=== PATIENT | female | born 1960 | race Caucasian/White ===

== ENCOUNTER 2019-09-06 16:11 | Emergency (ER) | payer OTHER ==
[2019-09-06 16:49] VITALS: BP 124/73
--- NOTE | 2019-09-06 17:08 | UC ---
Lower Extremity/Ankle HPI - HPI Summary HPI Summary: Pt presents with c/o right foot pain X 1 day. Pt denies recent trauma or overuse. Pt states pain is worse with weight bearing. Pt denies hx of gout or septic joint. - History of Current Complaint Chief Complaint: UCLowerExtremity Stated Complaint: RT FOOT COMPLAINT Time Seen by Provider: 09/06/19 16:48 Hx Obtained From: Patient ?: No Onset/Duration: Sudden Onset, Still Present Severity Initially: Mild Severity Currently: Moderate - with weight bearing Pain Intensity: 2 Aggravating Factor(s): Standing, Ambulation Alleviating Factor(s): Rest, Elevation Able to Bear Weight: Yes - painful - Risk Factors Gout Risk Factors: Age Over 40 DVT Risk Factors: Negative Septic Arthritis Risk Factor: Negative - Allergies/Home Medications Allergies/Adverse Reactions: Allergies Allergy/AdvReac Type Severity Reaction Status Date / Time amoxicillin [From Augmentin] Allergy Unknown Verified 09/06/19 16:49 Reaction Details clavulanic acid Allergy Unknown Verified 09/06/19 16:49 [From Augmentin] Reaction Details Home Medications: Home Medications NK [No Home Medications Reported] 09/06/19 [History Confirmed 09/06/19] PMH/Surg Hx/FS Hx/Imm Hx Previously Healthy: Yes - Surgical History Surgical History: Yes Surgery Procedure, Year, and Place: T&A - Family History Known Family History: Positive: Cardiac Disease - Social History Occupation: Employed Full-time Lives: With Family Alcohol Use: Occasionally Substance Use Type: None Smoking Status (MU): Heavy Every Day Tobacco Smoker Amount Used/How Often: 1 pack day Have You Smoked in the Last Year: Yes Review of Systems All Other Systems Reviewed And Are Negative: Yes Constitutional: Positive: Negative Skin: Positive: Negative Eyes: Positive: Negative ENT: Positive: Negative Respiratory: Positive: Negative Cardiovascular: Positive: Negative Gastrointestinal: Positive: Negative Genitourinary: Positive: Negative Motor: Positive: Negative Neurovascular: Positive: Negative Musculoskeletal: Positive: Arthralgia - right proximal anterior foot Neurological: Positive: Negative Psychological: Positive: Negative Is Patient Immunocompromised?: No Physical Exam Triage Information Reviewed: Yes Appearance: Well-Appearing, Pain Distress - with weight Vital Signs: Initial Vital Signs Temp 99.1 F 09/06/19 16:45 Pulse 80 09/06/19 16:45 Resp 16 09/06/19 16:45 BP 124/73 09/06/19 16:45 Pulse Ox 98 09/06/19 16:45 Vital Signs Reviewed: Yes Eye Exam: Normal ENT Exam: Normal Dental Exam: Normal Neck exam: Normal Respiratory: Positive: No respiratory distress Musculoskeletal: Positive: Other: - small area on right anterior proximal foot that is warmer to touch than other areas distal and proximal of it Neurological Exam: Normal Psychological Exam: Normal Skin Exam: Normal Diagnostics - Radiology No standard instances Radiology Interpretation Completed By: Radiologist - Operations Accountant: Austen Banda, ([id number]) Crystal Lapper: JACOBY (NUANCE) Report Date: 2018 17:18:00 Report Status: Final ======= Start of Report Content Patient Name: WINSOME ENG Medical Record#: [id number] Ordering Physician: Arlin Juarez SENIOR QUALITY METHODS SPECIALIST Acct.#: [id number] : 1960 Age: 58 Sex: F Location: [facility] Exam Date: 09/06/191658 ADM Status: REG ER Order Information: FOOT RIGHT 2 VWS Accession Number: [id number] CPT: 40890 INDICATION: Atraumatic pain overlying the fourth and fifth metatarsals COMPARISON: None. TECHNIQUE: 2 views of the right foot were obtained. FINDINGS: The adequately corticated bones are properly aligned. Joint spaces appear maintained. No fracture, dislocation or focal bony abnormality is seen. IMPRESSION: Normal radiograph of the right foot. If the patient's symptoms persist, follow-up imaging is recommended. <Electronically signed by Austen Banda MD in OV> [id number] Dictated By: Austen Banda MD Dictated Date/Time: 09/06/191712 Transcribed Date/Time: 09/06/191712 Copy to: CC:Eric Conti MD; Arlin Paul SENIOR QUALITY METHODS SPECIALIST; Piedad Burleson MD Imaging - [facility] Imaging - [facility] Imaging - [facility] [address] [place], [place] [id number] [place] [id number] [place] [id number] ph ([phone]) ph ([phone]) ph ([phone]) ==== End of Report Content Lower Extremity Course/Dx - Course Course Of Treatment: I discussed the xray report with pt and discussed if symptoms worsen to seek care as needed. Pt has appointment with PCP on 09/17/19 - Differential Dx/Diagnosis Differential Diagnosis/HQI/PQRI: Gout, Septic Arthritis Provider Diagnosis: Foot pain, right Discharge ED - Sign-Out/Discharge Documenting (check all that apply): Patient Departure All imaging exams completed and their final reports reviewed: Yes - Discharge Plan Condition: Stable Disposition: HOME Patient Education Materials: Tendinitis (ED), Arthralgia (ED) Referrals: Piedad Burleson MD [Primary Care Provider] - As Soon As Possible - Billing Disposition and Condition Condition: STABLE Disposition: Home
== END 2019-09-06 17:33 | disposition home or self-care (01) ==
LOC: UCCORT 16:11
DX: M79.671 Pain in right foot (principal); F17.210 Nicotine dependence, cigarettes, uncomplicated; Z88.0 Allergy status to penicillin; Z88.1 Allergy status to other antibiotic agents
CPT/HCPCS: 99211; G0463